=== PATIENT | female | born 1990 | race African-American/Black ===

== ENCOUNTER 2016-02-23 08:17 | Emergency (ER) | payer OTHER ==
[~2016-02-23] VITALS: Ht 147.3 cm; Wt 117.9 kg
[~2016-02-23 08:17] MED LIST: IBUPROFEN 800800 M1 PO; NOHOMEMEDICATIONS; NORCO 5-325 TA1 EACH PO; ONDANSETRON HCL4 M2 PO; PRILOSEC 20 MG20 MG PO; TRAMADOL 50 MG50 MG PO; ZANTAC 150MG T150 MG PO; ZOFRAN ODT4 MG PO
[2016-02-23] MEDS ORDERED: DOXYCYCLINE 10100 MG PO (09:55)
[2016-02-23] MEDS ORDERED: NORCO 5-325 TA1 EACH PO (09:55)
[2016-02-23 10:15] VITALS: BP 148/98
== END 2016-02-23 10:35 | disposition home or self-care (01) ==
LOC: ER 08:17
DX: N75.1 Abscess of Bartholin's gland (principal); J45.909 Unspecified asthma, uncomplicated